=== PATIENT | male | born 1940 | race African-American/Black ===

== ENCOUNTER 2016-08-11 14:50 | Inpatient (IN) | payer OTHER ==
--- NOTE | ~2016-08-11 | DS ---
Discharge Summary [facility] [address] [place]. [address] NAME: TRINIDAD SESAY : 39 STATUS : DIS IN PAT#: [id number] AGE: 76 ADM/REG DATE : 08/11/16 MR#: [id number] REPORT SERV DATE: 09/04/16 DICTATED BY: GOLDEN BLEVINS DATE: 09/03/16 REPORT STATUS : Draft TRANSCRIBED BY: DEB DATE: 09/03/16 Data Collection from hospitalization DISCHARGE DIAGNOSES: 1. Small bowel obstruction. 2. Hypertension. 3. History of rectal cancer. 4. Congestive heart failure. 5. Hyperlipidemia. 6. History of prostate cancer. 7. Left foot drop. CONSULTATIONS: 1. Isaías Garcias MD. 2. Elmo Mccann M.D. PROCEDURES: 1. Diagnostic laparoscopy, exploratory laparotomy, and lysis of adhesions on 08/12/2016. 2. CT scan of the abdomen and pelvis without contrast on 08/11/2016. DISCHARGE MEDICATIONS: Proventil two puffs via inhaler every six hours as needed, aspirin 81 mg daily, and 81 mg at bedtime as needed; vitamin D3 10,000 units on Saturdays, ferrous sulfate 325 mg twice a day, Neurontin 600 mg three times a day, Dearing 10/325 one tablet every eight hours as needed, Zestoretic one tablet daily, Toprol-XL 50 mg daily, Xarelto 20 mg with supper, Zocor 40 mg at bedtime, Desyrel 50 mg at bedtime, and Travatan one drop at bedtime. CONDITION AT DISCHARGE: Stable. DISPOSITION: The patient was discharged home on a regular diet with activities as instructed. He would follow up with Dr. Tima Uriostegui as needed. HOSPITAL COURSE: This is a 76-year-old man, who has a history of rectal cancer treated with APR with ostomy. He has a history of multiple high-grade small bowel obstruction that had always been treated with nonsurgical management. He presented at this time with three days of nausea, vomiting, and abdominal distention, as well as decreased ostomy output. He said this was similar to his prior episodes. He said that his symptoms briefly improved, but then returned, which was why he presented to the hospital. He had not been able to tolerate much by mouth, but did maintain good urine output. The patient did not think he had any output from the ostomy, including no flatus since the onset of symptoms. His pain was mild and similar to previous episodes, it improved with pain medication. A CT scan of the abdomen and pelvis showed high-grade small bowel obstruction with transition point at the central mesenteric with possible swirling. There was also a stable right renal cyst. This was similar to his prior CT scans of his previous bowel obstruction episodes. He was admitted to the hospital at this time for further evaluation and treatment. Upon admission, he was held n.p.o., IV fluids were started, an NG tube was placed at low intermittent wall suction. A series of abdominal exams would be performed, morning labs Discharge Summary [address] [place]. [address] NAME: TRINIDAD SESAY : 39 STATUS : DIS IN PAT#: [id number] AGE: 76 ADM/REG DATE : 08/11/16 MR#: [id number] REPORT SERV DATE: 09/04/16 DICTATED BY: GOLDEN BLEVINS DATE: 09/03/16 REPORT STATUS : Draft TRANSCRIBED BY: DEB DATE: 09/03/16 would be obtained. Given his history of bowel obstruction, but his usual response to nonsurgical management, we would continue with this plan with hopes of resolution in the up coming days. The patient was in agreement. The following day, he had no new complaints. His abdomen was soft but distended. A small bowel followthrough was going to be performed. After review of his small bowel follow through, it was elected to proceed with surgical intervention. The patient was taken to the operating room where he underwent the above- mentioned procedure. He tolerated this well. There were no complications. On postop day #1, his urine output had decreased. He was still intubated and sedated. Ventilator weaning was going to be performed. He was seen in consultation by Dr. Elmo Mccann regarding atrial fibrillation. He is normally seen by Dr. Milo Hawley at [place]. The patient has a history of hypertension and hypercholesterolemia. He has a history of congestive heart failure with his ejection fraction being low in the past. His most recent echocardiogram in 2016, had shown his ejection fraction had improved to around 50%. Postoperatively, he had developed atrial fibrillation with rapid ventricular rate. He was started on IV Cardizem drip and heart rate had slowed, but he was still in atrial fibrillation. He currently did not complain of symptoms of dyspnea, chest pain, or palpitations. Troponin was 0.21. 12- lead EKG showed atrial fibrillation with a rate of 150 beats per minute. He had nonspecific T-wave abnormalities noted. IV Cardizem continued, it was felt he would probably need IV medication for a few days until his gut began to work again. We would need to consider long winder tender anticoagulation, but this did not appear to be the time to start systemic anticoagulation so soon postoperatively from bowel surgery. He was also seen by Dr. Isaías Garcias regarding critical care management. The patient was in the MICU, intubated with postoperative respiratory failure, as well as being in atrial fibrillation with rapid ventricular response. Ventilator management would be continued. His blood gas had shown respiratory alkalosis. Tidal volume was decreased. Repeat blood gas would be performed. Daily awakening trials would be performed while the patient was on the ventilator. He was currently sedated with propofol and fentanyl. He was placed on bronchodilator protocol. He has no history of COPD. His Cardizem drip would continue. If blood pressure became any issue, he would be switched to IV amiodarone. On 08/14/2016, he had no chest pain or shortness of breath. His lungs were clear bilaterally. His abdomen was mildly distended. He had decreased breath sounds. He had been extubated. ELECTRIC ORGAN CHECKER was added for pain control. His abdomen was distended and tympanitic. Arterial line was removed. On 08/15/2016, he still had some abdominal distention. He was agitated. He was passing some flatus. We encouraged him to mobilize with Physical Therapy. He was being held n.p.o. He had developed a lot of hiccups. His abdominal pain was controlled with Dilaudid and ELECTRIC ORGAN CHECKER. Telemetry revealed atrial flutter-rate controlled-variable AV block. A dose of IV Lasix was given for decreased urine output. The patient refused physical therapy at this time. IV Cardizem continued for rate control. He self removed the NG tube during the night. IV diltiazem continued. On 08/17/2016, he complained of some abdominal pain and nausea. He remained n.p.o. IV fluids were continued. TPN was going to begin. The next day, he had no chest pain. He was still n.p.o. He was tolerating TPN. He was felt to have ileus. The Cade catheter was removed. He had increased ostomy output. On 08/19/2016, he was passing flatus. His abdomen was distended and tympanitic. The ostomy was viable and nontender. He continued to do well. Discharge planning was performed. Telemetry revealed atrial fibrillation. Xarelto was going to begin as well as metoprolol-XL. TPN therapy continued. He was evaluated by Physical Therapy. On 08/21/2016, he began to tolerate oral intake. His Discharge Summary [facility] [address] [facility] [place]. [address] NAME: TRINIDAD SESAY : 39 STATUS : DIS IN PAT#: [id number] AGE: 76 ADM/REG DATE : 08/11/16 MR#: [id number] REPORT SERV DATE: 09/04/16 DICTATED BY: GOLDEN BLEVINS DATE: 09/03/16 REPORT STATUS : Draft TRANSCRIBED BY: DEB DATE: 09/03/16 abdomen was only mildly distended, it was soft. His diet was going to be advanced. TPN was being weaned, it would be discontinued. He was anxious to go home. Rate control plus anticoagulation was suggested. Xarelto and Toprol-XL would be continued at home. Discharge instructions were given. Due to his improved and stable condition, he was discharged home with the above-stated instructions. Information collected by: Abbey Hawkins I submit the above information as my discharge summary. ISMAEL/DEB Golden Blevins M.D. / [id number] CC: Satnam Jacob M.D. William Warren, M.D.
--- NOTE | ~2016-08-11 | OP ---
Record Of Operation [facility] [address] [place]. [address] NAME: TRINIDAD SESAY : 39 STATUS : ADM IN PAT#: [id number] AGE: 76 ADM/REG DATE : 08/11/16 MR#: [id number] REPORT SERV DATE: 08/13/16 DICTATED BY: GOLDEN BLEVINS DATE: 08/13/16 REPORT STATUS : Draft TRANSCRIBED BY: MODL DATE: 08/13/16 DATE OF PROCEDURE: 08/12/2016 PREOPERATIVE DIAGNOSIS: Small-bowel obstruction. POSTOPERATIVE DIAGNOSIS: Small-bowel obstruction. PROCEDURE: Diagnostic laparoscopy, exploratory laparotomy, and lysis of adhesions. RESIDENT SURGEON: Dr. Michael Brown. ANESTHESIA: General. ESTIMATED BLOOD LOSS: 20 mL. DETAILS OF PROCEDURE: The patient arrived in the operating suite and was placed on the table in supine position. General anesthesia was obtained via an endotracheal tube. Ostomy appliance was removed and pursestring silk was placed and a sterile dressing overlying the left lower quadrant ostomy. The abdomen was then prepped and draped in a sterile manner. 0.5% Marcaine with epinephrine was infiltrated in the right mid abdomen. A small incision was performed and a 10 mm blunt trocar was inserted under laparoscopic visualization. The peritoneal cavity was insufflated with CO2 gas to 15 mmHg pressure. Additional trocars were inserted in the upper midline and the right lower quadrant using blunt technique under laparoscopic guidance. The bowel was massively dilated, but not ischemic. Distal decompressed small bowel was identified. There was some omentum adherent anteriorly, but no bowel adherent anteriorly. There was decompressed bowel in the pelvis with some adhesions, but no evidence of obstruction. The obstructive point appeared after gently manipulating the bowel to be deep to the umbilicus and appeared to be scarring along the mesentery with some degree of torsion causing obstruction. Once this became difficult to discern, midline incision was performed in the periumbilical region of approximately 10 cm. The peritoneal cavity was decompressed. Trocars were removed using blunt dissection. The mesentery was identified and the bowel detorsed. There appeared to be scarring and tethering of the mesentery leading to torsion and degree of volvulus leading to the obstruction. This scar was lysed with cautery allowing the bowel to be appropriately detorsed and the distal bowel then filled with fluid, which had been previously decompressed. The proximal bowel was massively dilated both acutely and chronically. Minimal fluid was present and it was removed with suction. The fascia was then repaired with [id number] PDS. Subcutaneous tissue irrigated. Skin closure at all sites was performed with lianna. Sterile dressing applied. The pursestring suture and the ostomy were removed and a new ostomy appliance placed. The patient was then awakened and taken to MICU on the ventilator in guarded but stable condition. /DEB Record Of [address] [place]. [address] NAME: TRINIDAD SESAY : 39 STATUS : ADM IN [facility]#: [id number] AGE: 76 ADM/REG DATE : 08/11/16 MR#: [id number] REPORT SERV DATE: 08/13/16 DICTATED BY: GOLDEN BLEVINS DATE: 08/13/16 REPORT STATUS : Draft TRANSCRIBED BY: DEB DATE: 08/13/16 Golden Blevins M.D. / [id number] CC: Satnam Jacob M.D.
--- NOTE | ~2016-08-11 | CN ---
Consultation Report [facility] [address] [place]. [address] NAME: TRINIDAD MCHUGH : 39 STATUS : ADM IN [facility]#: [id number] AGE: 76 ADM/REG DATE : 08/11/16 MR#: [id number] REPORT SERV DATE: 08/13/16 DICTATED BY: ELMO MCCANN DATE: 08/13/16 REPORT STATUS : Draft TRANSCRIBED BY: MODL DATE: 08/13/16 CARDIOVASCULAR CONSULTATION DATE OF CONSULTATION: 08/13/2016 INDICATIONS: Atrial fibrillation. HISTORY OF PRESENT ILLNESS: Mr. Mchugh is a 76-year-old man normally seen by Dr. iMlo Hawley of Cardiology at [place]. He has a history of hypertension and hypercholesterolemia. There is a reported history of congestive heart failure with EF being low in the past. On his most recent echocardiogram in 2015, however, his EF had improved to an EF of around 50%. The patient is admitted with symptomatic small-bowel obstruction and underwent exploratory laparotomy. He is seen postoperatively from this procedure in the setting of atrial fibrillation with rapid ventricular rate. He was started on an IV Cardizem drip. His heart rate has slowed, but he is still in atrial fibrillation. The patient currently does not complain of symptoms of dyspnea, chest pain, or palpitations. PAST MEDICAL HISTORY: 1. Hypertension. 2. Hypercholesterolemia. 3. History of congestive heart failure with improvement in LV function by echocardiogram about a year ago. 4. History of rectal cancer, status post APR with ostomy. 5. History of multiple high-grade small-bowel obstructions. SOCIAL HISTORY: He does not smoke or drink alcohol. FAMILY HISTORY: There is no family history of early coronary artery disease. REVIEW OF SYSTEMS: A complete review of systems was obtained, which is negative in detail except as mentioned above in the HPI. PHYSICAL EXAMINATION: VITAL SIGNS: Blood pressure 140/80, heart rate of 70 and irregular, respiratory rate of 14. GENERAL: Comfortable in no acute distress. HEENT: Anicteric. No xanthelasma. Lips without cyanosis. NECK: No JVD. Carotids 2+ and symmetric. No carotid bruits. LUNGS: CTA bilaterally. No wheezes or rhonchi. No accessory muscle use. COR: RRR. Normally placed PMI. Normal S1 and S2. No murmurs, rubs or gallops. ABD: Soft, nontender, nondistended. Normal bowel sounds. No abdominal bruits. EXT: No clubbing, cyanosis or edema 2+ and symmetric distal pulses. SKIN: Warm. Dry. No venous stasis changes. Consultation Report [facility] [place]. [address] NAME: TRINIDAD MCHUGH : 39 STATUS : ADM IN PAT#: [id number] AGE: 76 ADM/REG DATE : 08/11/16 MR#: [id number] REPORT SERV DATE: 08/13/16 DICTATED BY: ELMO MCCANN DATE: 08/13/16 REPORT STATUS : Draft TRANSCRIBED BY: MODL DATE: 08/13/16 MS: No kyphosis. NEURO/PSYCH: Oriented x3. No anxiety or depression. LABORATORY STUDIES: Sodium of 144, potassium of 3.7, creatinine of 1.0. White count of 8.5, hematocrit of 35.5, platelets 235. Troponin of 0.21. EKG: A 12-lead EKG shows atrial fibrillation, rate 150 beats per minute. Nonspecific T-wave abnormalities noted. I reviewed an echocardiogram report from 07/25/2015 showing EF of 54%. IMPRESSION: This is a 76-year-old man with a history of hypertension, hypercholesterolemia, and congestive heart failure, who presents with symptomatic atrial fibrillation/flutter at a rapid rate postop from small-bowel obstruction, lysis of adhesions. I agree with plans for IV Cardizem. He probably needs an IV medication for a few days until his gut starts working again. We will need to consider long-term anticoagulation, but it does not appear to be the time to start systemic anticoagulation so soon postoperative from bowel surgery. TALISHA/DEB Elmo Mccann M.D. / [id number] CC: Satnam Jacob M.D.
--- NOTE | ~2016-08-11 | HP ---
History And Physical [place] [id number] [facility] [place]. [address] NAME: TRINIDAD SESAY : 39 STATUS : ADM IN [facility]#: [id number] AGE: 76 ADM/REG DATE : 08/11/16 MR#: [id number] REPORT SERV DATE: 08/12/16 DICTATED BY: GOLDEN BLEVINS DATE: 08/11/16 REPORT STATUS : Draft TRANSCRIBED BY: MODL DATE: 08/11/16 DATE OF ADMISSION: 08/11/2016 CHIEF COMPLAINT: Nausea and vomiting. HISTORY OF PRESENT ILLNESS: This is a 76-year-old male, well known to the service with a past history significant for rectal cancer treated with APR with ostomy with history of multiple high-grade small-bowel obstructions that have always been treated with nonsurgical management who presents with three days of nausea, vomiting, abdominal distention, and decreased ostomy output. The patient says this is similar to his prior episodes. He says his symptoms briefly improved, but then returned which was why he presented to the hospital. The patient has not been able to tolerate much by mouth, but has maintained good urine output. The patient does not think he has had any output from his ostomy including no flatus since the onset of symptoms. The patient's pain is mild and similar to previous episodes. It is improved with pain medicine. Denies any chest pain, shortness of breath, or weakness. Denies any recent sick contacts or travel. Denies any dysuria. PAST MEDICAL HISTORY: Rectal cancer, CHF with small bowel obstruction, hypertension, hyperlipidemia, prostate cancer, left footdrop. PAST SURGICAL HISTORY: APR for rectal cancer, bilateral femoral ORIF, bladder repair secondary to trauma. SOCIAL HISTORY: Denies alcohol, tobacco, or illicit drug use. FAMILY HISTORY: Diabetes and coronary artery disease. ALLERGIES: XANAX CAUSES CONFUSION AND AGITATION. MEDICATIONS: Home medicines reviewed, please see the electronic reconciliation for full listing. REVIEW OF SYSTEMS: Pertinent positives and negatives as above per the HPI. Full 12-point review of systems was completed with no other additional findings. PHYSICAL EXAMINATION: VITALS: Temperature 98, blood pressure 112/54, heart rate 83, respirations 18, BP 99% on room air. GENERAL EXAM: This is an adult black male, in no acute distress. He is alert and oriented x3. CARDIOVASCULAR: Regular rate and rhythm. PULMONARY: Clear to auscultation bilaterally. ABDOMINAL EXAM: Abdomen is soft, distended. It is mildly tender to palpation near his left lower quadrant ostomy. There is no rebound, no guarding. There is no peritonitis. Ostomy is viable and patent, but without output. History And Physical [place] [address] [place]. [address] NAME: TRINIDAD SESAY : 39 STATUS : ADM IN [facility]#: [id number] AGE: 76 ADM/REG DATE : 08/11/16 MR#: [id number] REPORT SERV DATE: 08/12/16 DICTATED BY: GOLDEN BLEVINS DATE: 08/11/16 REPORT STATUS : Draft TRANSCRIBED BY: DEB DATE: 08/11/16 LABS: White count 5.5, hematocrit 40.2, platelets 232. Renal panel is within normal limits. Coagulation panel within normal limits. Troponins are normal at 0.24. All LFTs are within normal limits, lipase is 66. IMAGING: CT of the abdomen and pelvis shows a high-grade small-bowel obstruction with transition point at the central mesentery with possible swirling. There is also a stable right renal cyst. Of note, his imaging is similar to his prior CT scans of his previous bowel obstruction episodes. ASSESSMENT AND PLAN: This is a 76-year-old male with prior history of APR with small bowel obstruction. 1. We will admit to the floor, keep n.p.o. continue IV fluids. NG tube was placed in the emergency department. We will continue to low intermittent wall suction. We will continue strict I's and O's. 2. Check morning CBC, BMP, and lactate. 3. We will perform serial abdominal exams. 4. Given this patient's history of bowel obstructions, but usual response to nonsurgical management, we will continue with this plan with hopeful resolution in the upcoming days. Plan discussed with the patient who is in agreement and all questions were answered. /DEB Golden Blevins M.D. / [id number] CC: Golden Blevins M.D. Tima Uriostegui M.D.
--- NOTE | ~2016-08-11 | CN ---
Consultation Report [facility] [address] [place]. [address] NAME: TRINIDAD SESAY : 39 STATUS : ADM IN PAT#: [id number] AGE: 76 ADM/REG DATE : 08/11/16 MR#: [id number] REPORT SERV DATE: 08/13/16 DICTATED BY: MARK GARCIAS DATE: 08/13/16 REPORT STATUS : Draft TRANSCRIBED BY: MODL DATE: 08/13/16 DATE OF CONSULTATION: REASON FOR CONSULTATION: Critical care management. HISTORY OF PRESENT ILLNESS: The patient is a 76-year-old white gentleman with a past medical history of rectal cancer with a history of recurrent high-grade small-bowel obstructions, who initially presented to the ER earlier today with complaints of 3 days of nausea, vomiting, abdominal distention, and decreased ostomy output. The patient remarked that this is similar to his prior episodes of small-bowel obstructions. He initially said the symptoms got better, but then they returned and worsened and this prompted him to come to the emergency room. He has had poor p.o. intake the last couple of days and describes decreased output from his ostomy over the last several days as well. In the emergency room, the patient had an abdominal CT scan which showed high-grade small bowel obstruction. The patient was then taken to the OR, where he had lysis of adhesions by Dr. Blevins earlier today and he now comes to the MICU intubated with postoperative respiratory failure as well as in atrial fibrillation with rapid ventricular response, and we are consulted to assist in management. PAST MEDICAL HISTORY: 1. Rectal cancer status post APR with ostomy and history of multiple high-grade small- bowel obstructions. 2. History of congestive heart failure. 3. Hypertension. 4. Hyperlipidemia. 5. History of prostate cancer. 6. History of femoral open reduction and internal fixation. HOME MEDICATIONS: See medication reconciliation form. ALLERGIES: INCLUDE XANAX. SOCIAL HISTORY: No tobacco or alcohol, or IV drug abuse. FAMILY HISTORY: Reviewed and positive for coronary disease and diabetes per the chart. REVIEW OF SYSTEMS: Unable to obtain secondary to intubation and sedation. PHYSICAL EXAMINATION: VITAL SIGNS: Temperature 98.8, heart rate 82, respiratory rate 14, blood pressure 154/84. GENERAL: Sedated, intubated. HEENT: Pupils equal, round, and reactive to light. ET tube in place. NECK: Supple. Nontender. No lymphadenopathy. No thyromegaly. No jugular venous distention. Consultation Report [place] [address] [place]. [address] NAME: TRINIDAD SESAY : 39 STATUS : ADM IN PAT#: [id number] AGE: 76 ADM/REG DATE : 08/11/16 MR#: [id number] REPORT SERV DATE: 08/13/16 DICTATED BY: MARK GARCIAS DATE: 08/13/16 REPORT STATUS : Draft TRANSCRIBED BY: DEB DATE: 08/13/16 LUNGS: Clear to auscultation bilaterally. CARDIOVASCULAR: Irregularly irregular. 2 of 6 systolic murmur at left upper sternal border. No rubs or gallops. ABDOMEN: Soft, nontender. Decreased bowel sounds. No hepatosplenomegaly. EXTREMITIES: No cyanosis, clubbing, or edema. NEURO: Sedated. PSYCH: Unable to assess. LABS AND IMAGING: CBC unremarkable. Metabolic profile unremarkable. Lactic acid 1.1. Blood gas with a pH of 7.61, pCO2 of 24, PO2 of 240. ASSESSMENT AND PLAN: The patient is a 76-year-old gentleman with history of rectal cancer, status post APR with a history of ostomy, now with small bowel obstruction status post lysis of adhesions, postop day #[address] Blevins with acute postoperative respiratory failure and atrial fibrillation with rapid ventricular response. 1. Small bowel obstruction. Now status post lysis of adhesions. Postop day #0. We will defer to primary surgical team for routine postoperative management. 2. Postoperative respiratory failure. We will continue ventilator management post intubation. Blood gas shows respiratory alkalosis. We will decrease tidal volume and repeat a blood gas in the morning. We will provide daily awakening trials while patient is on the ventilator. Currently being sedated using propofol and fentanyl. We will place patient on bronchodilator protocol. No history of COPD per the chart. 3. Atrial fibrillation with a rapid ventricular response. The patient currently is tolerating with a good blood pressure. We will continue to drip and titrate for heart rate less than 100. If blood pressure becomes an issue, we will switch to IV amiodarone. Cardiology has been consulted and will see the patient in the morning. 4. Appreciate the consult. We will continue to follow along with you. Please call if you have any questions. 5. Total critical care time spent on this patient was 35 minutes. TARAH/DEB Mark Garcias MD / [id number] CC: Satnam Jacob M.D.
[~2016-08-11 14:50] MED LIST: ASA5GR PO; ASAB PO; AUG500 PO; BENTYL10 PO; BIAXIN5 PO; EYE ANTIBIOTIC; Eye Drops OP; HCTZ25B PO; IRON325 MG PO; KLONO5 PO; KLOR-CON M2020 MEQ PO; L40 PO; LOP25 PO; LORTAB10 PO; MAXIMUM D3 PO; MSCONT15 PO; NEUR300 PO; NORCO1 TAB PO; OPTHALMIC OPH; PLETAL100 PO; PLETAL50 PO; PRIN10 PO; PRIN20 PO; PRIN5 PO; PROAIR HFA INH; PROVHFA INH; SOMATAB PO; TOPXL25 PO; TOPXL50 PO; TRAVATAN OPH; TRAVATAN Z0.004 % OPH; VITAMIN B12 OTC PO; ZESTORETIC1 TA1 PO; ZOCOR40 PO; [UNRECOGNIZED DRUG - OTHER] TOP; [UNRECOGNIZED DRUG - REMARK] IM
[2016-08-11 16:39] LABS: BASOPHILS 0 %; EOSINOPHILS 0 %; ER CBC TAT 0 Hrs 07 Mins; IMMATURE GRANULOCYTES 0.2 %; IMMATURE GRANULOCYTES ABSOLUTE 0.01 10/3/uL (0.0-0.11); LYMPHOCYTES 10.2 %; LYMPHOCYTES ABSOLUTE 0.56 10/3/uL (0.67-4.30); MEAN CORPUS HGB CONC 34.6 g/dL (32.0-36.0); MEAN CORPUSCULAR HEMOGLOB 29.5 pg (26.0-34.0); MEAN PLATELET VOLUME 8.8 fL (9.2-13.0); MONOCYTES 2.7 %; MONOCYTES ABSOLUTE 0.15 10/3/uL (0.21-1.20); NEUTROPHILS 86.9 %; NEUTROPHILS ABSOLUTE 4.75 10/3/uL (2.02-8.40); PLATELET COUNT 232 10/3/uL (150-400); RBC DISTRIBUTION WIDTH 13.4 % (12.0-16.0); WHITE BLOOD CELLS 5.5 10/3/uL (4.5-10.5)
[2016-08-11 16:43] LABS: HEMATOCRIT 40.2 % (40.0-51.0); HEMOGLOBIN 13.9 g/dL (13.6-17.8); MANUAL DIFF NO %; MEAN CORPUSCULAR VOLUME 85.4 fL (80-100); RED CELL COUNT 4.71 10/6/uL (4.7-6.1)
[2016-08-11] MEDS ORDERED: FERROUS SULF325 M1 PO (16:48)
[2016-08-11] MEDS ORDERED: ZOCOR40 PO (16:49)
[2016-08-11] MEDS ORDERED: ZESTORETIC1 TA1 PO (16:49)
[2016-08-11 16:50] LABS: INTERNATIONAL NORMAL RATI 1.1 UNITS (-); PROTIME (NOT ORD) 13.9 SEC (12.0-14.5)
[2016-08-11] MEDS ORDERED: PROVHFA INH (16:50)
[2016-08-11 16:51] LABS: PARTIAL THROMBO TIME 28.1 SEC (22.5-37.2)
[2016-08-11] MEDS ORDERED: VITAMIN D31000 UNIT PO (16:51)
[2016-08-11] MEDS ORDERED: TOPXL50 PO (16:53)
[2016-08-11 16:55] LABS: ALBUMIN 3.7 G/DL (3.5-5.0); ALKALINE PHOSPHATASE 93 U/L (45-117); BUN (BLOOD UREA NITROGEN) 23 MG/DL (6-23); CALCIUM, SERUM 9.4 MG/DL (8.5-10.4); CHEST PAIN PROFILE TAT 0 Hrs 23 Mins; CHLORIDE, SERUM 100 MMOL/L (96-112); CO2 (CARBON DIOXIDE) 32 MMOL/L (24-34); CREATININE 0.89 MG/DL (0.70-1.30); DIRECT BILIRUBIN 0.2 MG/DL (0.0-0.4); GFR AFRICAN AMERICAN 96 ML/MIN (>=60); GFR NON AFRICAN AMERICAN 82 ML/MIN (>=60); GLUCOSE, SERUM 147 MG/DL (60-99); INDIRECT BILIRUBIN(NOT ORDER) 0.6 MG/DL (0.1-0.9); POTASSIUM, SERUM 4.3 MMOL/L (3.5-5.3); SGOT(AST) 19 U/L (5-40); SGPT(ALT) 20 U/L (5-65); SODIUM, SERUM 138 MMOL/L (135-148); TOTAL BILIRUBIN 0.8 MG/DL (0-1.2); TOTAL PROTEIN 8.3 G/DL (6.0-8.5); TROPONIN I 0.24 NG/ML (<0.05)
[2016-08-11] MEDS ORDERED: TRAZ50 PO (16:56)
[2016-08-11] MEDS ORDERED: TRAVATAN Z 0.004% OPH (16:56)
[2016-08-11] MEDS ORDERED: ASAB PO ×2 (16:57→16:58)
[2016-08-11] MEDS ORDERED: NEUR600 PO (16:58)
[2016-08-11] MEDS ORDERED: NORCO1 TAB PO (16:59)
[2016-08-12 05:55] LABS: BASOPHILS 0.2 %; BASOPHILS ABSOLUTE 0.01 10/3/uL (0.0-0.16); EOSINOPHILS 0.5 %; EOSINOPHILS ABSOLUTE 0.03 10/3/uL (0.0-0.53); HEMATOCRIT 37.8 % (40.0-51.0); HEMOGLOBIN 12.8 g/dL (13.6-17.8); IMMATURE GRANULOCYTES 0.2 %; IMMATURE GRANULOCYTES ABSOLUTE 0.01 10/3/uL (0.0-0.11); LYMPHOCYTES ABSOLUTE 1.25 10/3/uL (0.67-4.30); MEAN CORPUS HGB CONC 33.9 g/dL (32.0-36.0); MEAN CORPUSCULAR HEMOGLOB 29.6 pg (26.0-34.0); MEAN CORPUSCULAR VOLUME 87.5 fL (80-100); MEAN PLATELET VOLUME 9.4 fL (9.2-13.0); MONOCYTES 8.6 %; MONOCYTES ABSOLUTE 0.51 10/3/uL (0.21-1.20); NEUTROPHILS 69.5 %; NEUTROPHILS ABSOLUTE 4.15 10/3/uL (2.02-8.40); PLATELET COUNT 242 10/3/uL (150-400); RBC DISTRIBUTION WIDTH 13.5 % (12.0-16.0); RED CELL COUNT 4.32 10/6/uL (4.7-6.1)
[2016-08-12 05:56] LABS: BUN (BLOOD UREA NITROGEN) 20 MG/DL (6-23); CHLORIDE, SERUM 104 MMOL/L (96-112); CO2 (CARBON DIOXIDE) 30 MMOL/L (24-34); GFR AFRICAN AMERICAN 100 ML/MIN (>=60); GFR NON AFRICAN AMERICAN 86 ML/MIN (>=60); GLUCOSE, SERUM 121 MG/DL (60-99); POTASSIUM, SERUM 4.1 MMOL/L (3.5-5.3); SODIUM, SERUM 138 MMOL/L (135-148)
[2016-08-12 05:58] LABS: MANUAL DIFF NO %
[2016-08-12 23:09] LABS: INSTRUMENT SERIAL # 8083; PCO2 (CO2 TENSION) 24 MMHG (35-45); PO2 (O2 TENSION) 240 MMHG (79-93); pH 7.61 (7.37-7.43)
[2016-08-12 23:10] LABS: BE (BASE EXCESS) 3.6 MEQ/L (0 +/- 2.5); CARBOXYHEMOGLOBIN 0.2 % (0-3); HCO3 (ACTUAL BICARBONATE) 23.7 MEQ/L (23-27); HEMOBLOGIN CONTENT 13.6 G/DL (14-18); METHEMOGLOBIN 0.2 % (0-3); MODE CMV; O2 CONTENT 19.5 VOL% (18-24); OPERATOR ID 35785; SAMPLE Arterial; TIDAL VOLUME 550 ML
[2016-08-13 03:43] LABS: BE (BASE EXCESS) 0.9 MEQ/L (0 +/- 2.5); CARBOXYHEMOGLOBIN 0.1 % (0-3); HCO3 (ACTUAL BICARBONATE) 22.6 MEQ/L (23-27); HEMOBLOGIN CONTENT 13.2 G/DL (14-18); INSTRUMENT SERIAL # 8083; METHEMOGLOBIN 0.3 % (0-3); MODE CMV; O2 CONTENT 18.5 VOL% (18-24); OPERATOR ID 17370; PCO2 (CO2 TENSION) 28 MMHG (35-45); PO2 (O2 TENSION) 140 MMHG (79-93); SAMPLE Arterial; TIDAL VOLUME 450 ML; pH 7.52 (7.37-7.43)
[2016-08-13 05:27] LABS: BASOPHILS 0.1 %; BASOPHILS ABSOLUTE 0.01 10/3/uL (0.0-0.16); EOSINOPHILS 0 %; HEMATOCRIT 35.5 % (40.0-51.0); HEMOGLOBIN 12.3 g/dL (13.6-17.8); IMMATURE GRANULOCYTES 0.2 %; IMMATURE GRANULOCYTES ABSOLUTE 0.02 10/3/uL (0.0-0.11); LYMPHOCYTES 11.8 %; MEAN CORPUS HGB CONC 34.6 g/dL (32.0-36.0); MEAN CORPUSCULAR HEMOGLOB 29.9 pg (26.0-34.0); MEAN CORPUSCULAR VOLUME 86.4 fL (80-100); MONOCYTES 5.3 %; MONOCYTES ABSOLUTE 0.45 10/3/uL (0.21-1.20); NEUTROPHILS 82.6 %; NEUTROPHILS ABSOLUTE 6.98 10/3/uL (2.02-8.40); PLATELET COUNT 235 10/3/uL (150-400); RBC DISTRIBUTION WIDTH 13.8 % (12.0-16.0); RED CELL COUNT 4.11 10/6/uL (4.7-6.1)
[2016-08-13 05:28] LABS: MANUAL DIFF NO %; WHITE BLOOD CELLS 8.5 10/3/uL (4.5-10.5)
[2016-08-13 05:36] LABS: BUN (BLOOD UREA NITROGEN) 30 MG/DL (6-23); CALCIUM, SERUM 8.7 MG/DL (8.5-10.4); CHLORIDE, SERUM 109 MMOL/L (96-112); CO2 (CARBON DIOXIDE) 27 MMOL/L (24-34); GFR AFRICAN AMERICAN 84 ML/MIN (>=60); GFR NON AFRICAN AMERICAN 72 ML/MIN (>=60); GLUCOSE, SERUM 122 MG/DL (60-99); POTASSIUM, SERUM 3.7 MMOL/L (3.5-5.3); SODIUM, SERUM 144 MMOL/L (135-148)
[2016-08-13 10:05] LABS: INSTRUMENT SERIAL # 8083; pH 7.45 (7.37-7.43)
[2016-08-13 10:06] LABS: BE (BASE EXCESS) 3.2 MEQ/L (0 +/- 2.5); CARBOXYHEMOGLOBIN 0.3 % (0-3); DEVICE NC; HCO3 (ACTUAL BICARBONATE) 27.5 MEQ/L (23-27); HEMOBLOGIN CONTENT 12.8 G/DL (14-18); METHEMOGLOBIN 0.3 % (0-3); O2 CONTENT 18.4 VOL% (18-24); PCO2 (CO2 TENSION) 41 MMHG (35-45); PO2 (O2 TENSION) 251 MMHG (79-93); SAMPLE Arterial
[2016-08-14 03:37] LABS: BASOPHILS 0.3 %; BASOPHILS ABSOLUTE 0.02 10/3/uL (0.0-0.16); EOSINOPHILS 0.8 %; EOSINOPHILS ABSOLUTE 0.06 10/3/uL (0.0-0.53); HEMOGLOBIN 11.1 g/dL (13.6-17.8); IMMATURE GRANULOCYTES 0.1 %; IMMATURE GRANULOCYTES ABSOLUTE 0.01 10/3/uL (0.0-0.11); LYMPHOCYTES 17.3 %; LYMPHOCYTES ABSOLUTE 1.37 10/3/uL (0.67-4.30); MEAN CORPUSCULAR VOLUME 88.8 fL (80-100); MEAN PLATELET VOLUME 8.9 fL (9.2-13.0); MONOCYTES ABSOLUTE 0.55 10/3/uL (0.21-1.20); NEUTROPHILS 74.5 %; NEUTROPHILS ABSOLUTE 5.89 10/3/uL (2.02-8.40); PLATELET COUNT 205 10/3/uL (150-400); RED CELL COUNT 3.83 10/6/uL (4.7-6.1); WHITE BLOOD CELLS 7.9 10/3/uL (4.5-10.5)
[2016-08-14 03:42] LABS: MANUAL DIFF NO %; MEAN CORPUS HGB CONC 32.6 g/dL (32.0-36.0)
[2016-08-14 03:58] LABS: CALCIUM, SERUM 8.7 MG/DL (8.5-10.4); CHLORIDE, SERUM 110 MMOL/L (96-112); CO2 (CARBON DIOXIDE) 30 MMOL/L (24-34); CREATININE 0.72 MG/DL (0.70-1.30); FREE T4 1.19 NG/DL (0.76-1.46); GFR AFRICAN AMERICAN 104 ML/MIN (>=60); GFR NON AFRICAN AMERICAN 90 ML/MIN (>=60); GLUCOSE, SERUM 126 MG/DL (60-99); PHOSPHORUS, SERUM 2.7 MG/DL (2.5-4.5); SODIUM, SERUM 144 MMOL/L (135-148)
[2016-08-14 04:09] LABS: BUN (BLOOD UREA NITROGEN) 20 MG/DL (6-23)
[2016-08-15 06:25] LABS: BASOPHILS 0.2 %; BASOPHILS ABSOLUTE 0.01 10/3/uL (0.0-0.16); EOSINOPHILS 4.3 %; EOSINOPHILS ABSOLUTE 0.26 10/3/uL (0.0-0.53); HEMATOCRIT 33.5 % (40.0-51.0); IMMATURE GRANULOCYTES 0.2 %; IMMATURE GRANULOCYTES ABSOLUTE 0.01 10/3/uL (0.0-0.11); LYMPHOCYTES 13.7 %; LYMPHOCYTES ABSOLUTE 0.82 10/3/uL (0.67-4.30); MEAN CORPUS HGB CONC 32.8 g/dL (32.0-36.0); MEAN CORPUSCULAR HEMOGLOB 29.4 pg (26.0-34.0); MEAN CORPUSCULAR VOLUME 89.6 fL (80-100); MEAN PLATELET VOLUME 8.9 fL (9.2-13.0); MONOCYTES 5.2 %; MONOCYTES ABSOLUTE 0.31 10/3/uL (0.21-1.20); NEUTROPHILS 76.4 %; NEUTROPHILS ABSOLUTE 4.58 10/3/uL (2.02-8.40); PLATELET COUNT 211 10/3/uL (150-400); RBC DISTRIBUTION WIDTH 13.5 % (12.0-16.0); RED CELL COUNT 3.74 10/6/uL (4.7-6.1)
[2016-08-15 06:28] LABS: MANUAL DIFF NO %
[2016-08-15 06:30] LABS: CHLORIDE, SERUM 107 MMOL/L (96-112); CO2 (CARBON DIOXIDE) 30 MMOL/L (24-34); CREATININE 0.62 MG/DL (0.70-1.30); GFR AFRICAN AMERICAN 111 ML/MIN (>=60); GFR NON AFRICAN AMERICAN 96 ML/MIN (>=60); GLUCOSE, SERUM 133 MG/DL (60-99); PHOSPHORUS, SERUM 2.7 MG/DL (2.5-4.5); POTASSIUM, SERUM 4.6 MMOL/L (3.5-5.3); SODIUM, SERUM 143 MMOL/L (135-148)
[2016-08-15 06:31] LABS: BUN (BLOOD UREA NITROGEN) 15 MG/DL (6-23)
[2016-08-16 07:14] LABS: BASOPHILS 0.4 %; BASOPHILS ABSOLUTE 0.02 10/3/uL (0.0-0.16); EOSINOPHILS 6.8 %; EOSINOPHILS ABSOLUTE 0.38 10/3/uL (0.0-0.53); HEMATOCRIT 33.1 % (40.0-51.0); HEMOGLOBIN 11.2 g/dL (13.6-17.8); IMMATURE GRANULOCYTES 0.4 %; IMMATURE GRANULOCYTES ABSOLUTE 0.02 10/3/uL (0.0-0.11); LYMPHOCYTES 17.2 %; LYMPHOCYTES ABSOLUTE 0.96 10/3/uL (0.67-4.30); MEAN CORPUS HGB CONC 33.8 g/dL (32.0-36.0); MEAN CORPUSCULAR HEMOGLOB 29.7 pg (26.0-34.0); MEAN CORPUSCULAR VOLUME 87.8 fL (80-100); MEAN PLATELET VOLUME 8.8 fL (9.2-13.0); MONOCYTES 7.9 %; MONOCYTES ABSOLUTE 0.44 10/3/uL (0.21-1.20); NEUTROPHILS 67.3 %; NEUTROPHILS ABSOLUTE 3.75 10/3/uL (2.02-8.40); PLATELET COUNT 224 10/3/uL (150-400); RBC DISTRIBUTION WIDTH 13.1 % (12.0-16.0); RED CELL COUNT 3.77 10/6/uL (4.7-6.1); WHITE BLOOD CELLS 5.6 10/3/uL (4.5-10.5)
[2016-08-16 07:19] LABS: MANUAL DIFF NO %
[2016-08-16 07:30] LABS: A/G RATIO 0.8 (0.7-1.9); ALBUMIN 2.9 G/DL (3.5-5.0); ALKALINE PHOSPHATASE 57 U/L (45-117); BUN (BLOOD UREA NITROGEN) 14 MG/DL (6-23); CALCIUM, SERUM 8.9 MG/DL (8.5-10.4); CHLORIDE, SERUM 102 MMOL/L (96-112); CO2 (CARBON DIOXIDE) 31 MMOL/L (24-34); CREATININE 0.65 MG/DL (0.70-1.30); GFR AFRICAN AMERICAN 109 ML/MIN (>=60); GFR NON AFRICAN AMERICAN 94 ML/MIN (>=60); GLOBULIN 3.8 G/DL (2.5-4.1); GLUCOSE, SERUM 120 MG/DL (60-99); POTASSIUM, SERUM 4.2 MMOL/L (3.5-5.3); SGOT(AST) 18 U/L (5-40); SGPT(ALT) 16 U/L (5-65); SODIUM, SERUM 137 MMOL/L (135-148); TOTAL BILIRUBIN 1.4 MG/DL (0-1.2); TOTAL PROTEIN 6.7 G/DL (6.0-8.5)
[2016-08-17 05:59] LABS: BUN (BLOOD UREA NITROGEN) 16 MG/DL (6-23); CALCIUM, SERUM 9.1 MG/DL (8.5-10.4); CHLORIDE, SERUM 103 MMOL/L (96-112); CO2 (CARBON DIOXIDE) 28 MMOL/L (24-34); CREATININE 0.63 MG/DL (0.70-1.30); GFR AFRICAN AMERICAN 110 ML/MIN (>=60); GFR NON AFRICAN AMERICAN 95 ML/MIN (>=60); GLUCOSE, SERUM 136 MG/DL (60-99); POTASSIUM, SERUM 4.4 MMOL/L (3.5-5.3); SODIUM, SERUM 137 MMOL/L (135-148)
[2016-08-17 09:37] LABS: PHOSPHORUS, SERUM 3.2 MG/DL (2.5-4.5)
[2016-08-17 09:38] LABS: TRIGLYCERIDE 109 MG/DL (< 150)
[2016-08-18 07:02] LABS: BASOPHILS 0.1 %; BASOPHILS ABSOLUTE 0.01 10/3/uL (0.0-0.16); EOSINOPHILS 4.9 %; EOSINOPHILS ABSOLUTE 0.33 10/3/uL (0.0-0.53); HEMATOCRIT 36.8 % (40.0-51.0); HEMOGLOBIN 12.4 g/dL (13.6-17.8); IMMATURE GRANULOCYTES 0.3 %; IMMATURE GRANULOCYTES ABSOLUTE 0.02 10/3/uL (0.0-0.11); LYMPHOCYTES 14.6 %; LYMPHOCYTES ABSOLUTE 0.99 10/3/uL (0.67-4.30); MANUAL DIFF NO %; MEAN CORPUS HGB CONC 33.7 g/dL (32.0-36.0); MEAN CORPUSCULAR HEMOGLOB 29.5 pg (26.0-34.0); MEAN CORPUSCULAR VOLUME 87.4 fL (80-100); MEAN PLATELET VOLUME 8.9 fL (9.2-13.0); MONOCYTES 9.6 %; MONOCYTES ABSOLUTE 0.65 10/3/uL (0.21-1.20); NEUTROPHILS 70.5 %; NEUTROPHILS ABSOLUTE 4.79 10/3/uL (2.02-8.40); PLATELET COUNT 262 10/3/uL (150-400); RBC DISTRIBUTION WIDTH 12.9 % (12.0-16.0); RED CELL COUNT 4.21 10/6/uL (4.7-6.1); WHITE BLOOD CELLS 6.8 10/3/uL (4.5-10.5)
[2016-08-18 07:13] LABS: BUN (BLOOD UREA NITROGEN) 17 MG/DL (6-23); CHLORIDE, SERUM 102 MMOL/L (96-112); CO2 (CARBON DIOXIDE) 29 MMOL/L (24-34); CREATININE 0.54 MG/DL (0.70-1.30); GFR AFRICAN AMERICAN 117 ML/MIN (>=60); GFR NON AFRICAN AMERICAN 101 ML/MIN (>=60); GLUCOSE, SERUM 110 MG/DL (60-99); PHOSPHORUS, SERUM 3.2 MG/DL (2.5-4.5); POTASSIUM, SERUM 4.6 MMOL/L (3.5-5.3); SODIUM, SERUM 137 MMOL/L (135-148)
[2016-08-18 07:27] LABS: PREALBUMIN 11.6 MG/DL (17.0-43.0)
[2016-08-19 04:02] LABS: BUN (BLOOD UREA NITROGEN) 26 MG/DL (6-23); CALCIUM, SERUM 8.5 MG/DL (8.5-10.4); CHLORIDE, SERUM 103 MMOL/L (96-112); CO2 (CARBON DIOXIDE) 26 MMOL/L (24-34); CREATININE 0.54 MG/DL (0.70-1.30); GFR AFRICAN AMERICAN 117 ML/MIN (>=60); GFR NON AFRICAN AMERICAN 101 ML/MIN (>=60); GLUCOSE, SERUM 102 MG/DL (60-99); PHOSPHORUS, SERUM 3.3 MG/DL (2.5-4.5); POTASSIUM, SERUM 3.9 MMOL/L (3.5-5.3); SODIUM, SERUM 137 MMOL/L (135-148)
[2016-08-20 06:54] LABS: BUN (BLOOD UREA NITROGEN) 25 MG/DL (6-23); CALCIUM, SERUM 8.6 MG/DL (8.5-10.4); CHLORIDE, SERUM 103 MMOL/L (96-112); CO2 (CARBON DIOXIDE) 26 MMOL/L (24-34); CREATININE 0.52 MG/DL (0.70-1.30); GFR AFRICAN AMERICAN 119 ML/MIN (>=60); GFR NON AFRICAN AMERICAN 103 ML/MIN (>=60); GLUCOSE, SERUM 108 MG/DL (60-99); PHOSPHORUS, SERUM 3.2 MG/DL (2.5-4.5); POTASSIUM, SERUM 4.4 MMOL/L (3.5-5.3); SODIUM, SERUM 136 MMOL/L (135-148)
[2016-08-21 07:05] LABS: BUN (BLOOD UREA NITROGEN) 22 MG/DL (6-23); CALCIUM, SERUM 8.6 MG/DL (8.5-10.4); CHLORIDE, SERUM 107 MMOL/L (96-112); CO2 (CARBON DIOXIDE) 27 MMOL/L (24-34); CREATININE 0.47 MG/DL (0.70-1.30); GFR AFRICAN AMERICAN 124 ML/MIN (>=60); GFR NON AFRICAN AMERICAN 107 ML/MIN (>=60); GLUCOSE, SERUM 109 MG/DL (60-99); PHOSPHORUS, SERUM 3.2 MG/DL (2.5-4.5); POTASSIUM, SERUM 4.3 MMOL/L (3.5-5.3); SODIUM, SERUM 140 MMOL/L (135-148)
[2016-08-21] MEDS ORDERED: XARELTO20 MG PO ×2 (12:12→12:14)
== END 2016-08-21 13:57 | disposition home or self-care (01) | DRG 335 ==
LOC: ER 14:50 → 5SO 19:04 → SDC/OF 08-12 18:16 → MIC 08-12 20:45 → 6NO 08-14 18:13
PROVIDERS: Emergency Medicine; Internal Medicine Pulmonary Disease; Physician Assistant; Specialist; Surgery; Surgery Surgical Critical Care
PROC: 5A1945Z Respiratory Ventilation, 24-96 Consecutive Hours (ICD-10-PCS; 2016-08-12)
PROC: 0BH17EZ Insertion of Endotracheal Airway into Trachea, Via Natural or Artificial Opening (ICD-10-PCS; 2016-08-12)
PROC: 0DN80ZZ Release Small Intestine, Open Approach (ICD-10-PCS; principal; 2016-08-12 16:45)
PROC: 3E0536Z Introduction of Nutritional Substance into Peripheral Artery, Percutaneous Approach (ICD-10-PCS; 2016-08-17)
DX: K56.5 Intestinal adhesions [bands] with obstruction (postinfection) (principal); J95.821 Acute postprocedural respiratory failure; E87.3 Alkalosis; I97.89 Other postprocedural complications and disorders of the circulatory system, not elsewhere classified; I48.92 Unspecified atrial flutter; I48.91 Unspecified atrial fibrillation; E78.5 Hyperlipidemia, unspecified; E78.00 Pure hypercholesterolemia, unspecified; I10 Essential (primary) hypertension; K56.2 Volvulus; K56.7 Ileus, unspecified; Z53.31 Laparoscopic surgical procedure converted to open procedure; Z93.3 Colostomy status; Z85.46 Personal history of malignant neoplasm of prostate; Z82.49 Family history of ischemic heart disease and other diseases of the circulatory system; Z83.3 Family history of diabetes mellitus; Z88.8 Allergy status to other drugs, medicaments and biological substances; Z79.899 Other long term (current) drug therapy; Z85.048 Personal history of other malignant neoplasm of rectum, rectosigmoid junction, and anus; Z90.49 Acquired absence of other specified parts of digestive tract; Z98.890 Other specified postprocedural states; Y83.8 Other surgical procedures as the cause of abnormal reaction of the patient, or of later complication, without mention of misadventure at the time of the procedure
CPT/HCPCS: 31720; 36415; 71010; 74000; 74020; 74176; 74250; 80048; 80053; 80076; 81001; 82330; 82805; 82962; 83605; 83690; 83735; 84100; 84134; 84439; 84443; 84478; 84484; 85025; 85610; 85730; 86850; 86900; 86901; 86920; 87641; 93005; 94002; 94003; 96374; 96375; 97162-GP; 97530-GP; 99285; A9270-GY; C1751; C1769; G8978-CK-GP; G8979-CK-GP; J0360; J0694; J1170; J1940; J2250; J2370; J2405; J3010; J3475; P9045